=== PATIENT | female | born 1985 | race Native Hawaiian/Other Pacific Islander ===

== ENCOUNTER 2018-11-28 08:28 | Emergency (ER) | payer OTHER ==
[~2018-11-28] VITALS: Ht 162.6 cm; Wt 54.4 kg
[2018-11-28 08:35] VITALS: TEMP 98.1
[2018-11-28 09:05] LABS: PLATELET COUNT 254 K/uL (152-353)
[2018-11-28 09:13] LABS: POTASSIUM 3.1 mmol/L (3.6-5.2)
[2018-11-28 09:45] VITALS: BP 126/91
== END 2018-11-28 10:18 | disposition home or self-care (01) ==
LOC: ED 08:28
PROVIDERS: Family Medicine
DX: R10.31 Right lower quadrant pain (principal)
CPT/HCPCS: 36415; 80053; 85027; 96374; 99284; J1885